=== PATIENT | male | born 1970 | race Caucasian/White ===

== ENCOUNTER 2016-12-19 13:23 | Emergency (ER) | payer SELFPAY ==
[2016-12-19 13:27] VITALS: BMI 31.2
[2016-12-19 13:28] VITALS: BP 176/98
--- NOTE | 2016-12-19 14:21 | RAD ---
HISTORY: Injury to right 1st digit Study: 3 views of the right foot. Comparison: None Findings: No acute fracture or dislocation. Joint spaces are well aligned. No significant soft tissue swellin g or injury can be seen. IMPRESSION: 1. No acute abnormalities in the right foot. Reported By:
--- NOTE | 2016-12-19 14:32 | DR.EXTPAIN ---
HPI - Time seen Time seen: 13:45 - PCP Primary Care Physician: RAMÓN - HPI Comment HPI Comment: PATIENT KICK A LIMB AND HAVE PROGRESSIVE PAIN SINCE. GETTING WORSE. PAINFULL TO BEAR WEIGHT. CAME TO ED ON CRUTCHES. MEDS TAKING DID NOT HELP. - Complaint/Symptoms Chief Complaint Doctor Comments: RIGHT GREAT TOE AND FOOT PAIN TIMES 5 DAYS. Chief Complaint:: PT. C/O RIGHT FOOT PAIN. HE STATES HE KICKED A LIMB ON SUNDAY AND THINKS THAT IS HOW HE INJURED IT. PT. UNABLE TO BEAR WEIGHT TO RIGHT FOOT. - Nurses notes reviewed Nurses Notes Review: Yes - Source History Provided: Patient - Mode of arrival Mode of Arrival: Ambulatory - Timing Onset of Chief Complaint: 12/14/16 - Context History of: None - Associated signs and symptoms Associated Signs and Symptoms: Pain, Swelling, Bruising PMH - PMH Past Medical History: Yes Past Medical History: Anxiety, Hypertension Past Surgical History: Yes Surgical History: Tonsillectomy - Family History History of Family Medical Conditions: No - Social History Does patient currently use any type of tobacco product: No Have you used tobacco products in the last 12 months: No Type of Tobacco Use: None Does any household member use tobacco: No Alcohol Use: Rarely Do you use any recreational Drugs:: No Lives With: Spouse Lives Where: Home - infectious screening In the last 2 months have you had wt loss of >10#?: NO Have you had fever, night sweats or hemotysis?: No Have you traveled outside the country in the last 6 months?: No Isolation: Standard ROS - Review of Systems Constitutional: No Symptoms Reported Eyes: No Symptoms Reported ENTM: No Symptoms Reported Respiratoy: No Symptoms Reported Cardiovascular: No Symptoms Reported Gastrointestinal/Abdominal: No Symptoms Reported Genitourinary: No Symptoms Reported Neurological: No Symptoms Reported Musculoskeletal: Right, Foot Integumentary: Bruises, Other (REDNESS) Hematologic/Lymphatic: No Symptoms Reported Endocrine: No Symptoms Reported All Other Systems: Reviewed and Negative PE - Vital Signs Vitals: Temperature 97.7 F Pulse Rate 72 Respiratory Rate 17 Blood Pressure 176/98 O2 Sat by Pulse Oximetry 96 - General Limitations: No Limitations General Appearance: Alert - Head Head Exam: Normal Inspection - Eyes Eye exam: Normal Appearance - ENT ENT Exam: Normal External Ear Exam - Neck Neck Exam: Normal Inspection - Chest Chest Inspection: Symmetric Chest Wall Rise - Respiratory Respiratory Exam: Normal Lung Sounds Bilat Respiratory Exam: Bilateral Clear to Auscultation, Bilateral Wheezing, Bilateral Rales, Bilateral Rhonchi, Bilateral Crackles, Bilateral Decreased Breath Sounds, Bilateral Dullness on Percussion - Cardiovascular Cardiovascular Exam: Regular Rate, Normal Rhythm, Normal Heart Sounds - Abdominal Exam Abdominal Exam: Normal Inspection - Extremities Extremities Exam: Tenderness (REDNESS RIGHT GREAT TOE. ), Joint Swelling ( REDNESS RIGHT FIRST MP JOINT.) - Lower Extremities Foot/Toe Exam: Tenderness, Swelling. negative: Full ROM - Neurological Neurological Exam: Alert, Oriented X3 - Psychiatric Psychiatric Exam: Anxious - Skin Skin Exam: Erythema MDM - Differential Diagnosis Differential Diagnosis: Contusion, Fracture, Sprain Course - Treatment Treatment: SEE ORDERS - Education/Counseling Education/Counseling: Patient, Family, Education Educated On: Diagnosis, Needs for Follow Up ROR - XRAY XRAY Interpreted by: Radiologist XRAY Findings: REPORT DISCUSS WITH PATIENT AND FAMILY. - Diagnosis Discharge Problem: Contusion of right foot Qualifiers: Encounter type: initial encounter Qualified Code(s): S90.31XA - Contusion of right foot, initial encounter Sprain of right foot Qualifiers: Encounter type: initial encounter Qualified Code(s): S93.601A - Unspecified sprain of right foot, initial encounter - Discharge Plan Disposition: 01 HOME, SELF-CARE Condition: Stable Prescriptions: Ibuprofen [MOTRIN TAB 600 MG *] 600 mg PO TID PRN #20 tab PRN Reason: Pain/Inflammation Tramadol HCl 50 mg PO Q8H PRN #15 tab PRN Reason: Pain - Follow ups/Referrals Follow ups/Referrals: DERIAN MELGAR [Primary Care Provider] - 3 days - Instructions Instructions: Foot Contusion, [id number], Foot Sprain Additional Instructions: RETURN TO ED IF WORSE
== END 2016-12-19 14:38 | disposition home or self-care (01) ==
LOC: ER 13:34
DX: S90.31XA Contusion of right foot, initial encounter (principal); S93.601A Unspecified sprain of right foot, initial encounter; X58.XXXA Exposure to other specified factors, initial encounter; Y92.9 Unspecified place or not applicable
CPT/HCPCS: 73630; 99282; 99283